=== PATIENT | male | born 1975 ===

== ENCOUNTER 2016-08-30 07:23 | Emergency (ER) | payer OTHER ==
--- NOTE | 2016-08-30 08:04 | RADIOLOGY REPORT ---
Three views of the left ankle without prior films for comparison demonstrate slight cortical irregularity involving the posterior aspect of the fibula raising concern for nondisplaced fracture. The tibia, talus and mortise are intact. The visualized joints appear unremarkable. IMPRESSION: Question nondisplaced distal fibula fracture. Clinical correlation is necessary. If clinically indicated, further evaluation and/or follow-up may be of benefit. MTDD
--- NOTE | 2016-08-30 08:15 | ER PHYSICIAN DOCUMENTATION ---
Physician Documentation [facility] Name:Cory Yuen Age:41 yrs Sex:Male :1975 Arrival Date:08/30/2016 Time:07:23 Bed6 Private MD: Juan Francisco Her Disposition: 08/30 08:08 Chart complete. cd Disposition: 08/30/16 08:04 Discharged to Home/Self Care. Impression: Ankle Sprain - : Acute, Left. - Condition is Good. - Discharge Instructions: AIR STIRRUP ANKLE SPLINT, ANKLE SPRAIN with Xray - SPRAIN ANKLE (w/ x-ray). - Medical Reconciliation form form. - Follow up: Private Physician; When: 7 - 10 days; Reason: Recheck today's complaints, Continuance of care. - Problem is new. - Symptoms are unchanged. - Notes: Ice and elevate above your heart for 2 days. Ibuprofen 600mg by mouth every 6 hours with food for 4 - 5 days Wear Gel Foam Splint for 7 - 10 days HPI: 07:30 This 41 yrs old Male presents to ER via Private Vehicle with complaints of cd Ankle Injury - LEFT. 07:30 The patient presents with pain, that is acute, swelling. The complaints affect the cd right ankle. Onset: The symptom(s)/episode began/occurred acutely, yesterday. Context: The problem was sustained outdoors, The mechanism of injury involved inversion of the affected ankle. The patient can fully bear weight on the affected extremity. the patient is able to ambulate. Associated signs and symptoms: The patient has no apparent associated signs or symptoms. Historical: - Allergies: No known drug Allergies; - Home Meds: 1. clonazepam Oral 2. Crestor oral 3. Prozac Oral - PMHx: DEPRESSION; - PSHx: None; - Tetanus: < 10 years. - Ebola Screening: : Patient denies exposure to infectious person. Patient denies travel to an Ebola-affected area in the 21 days before illness onset. . - Social history: Smoking status: Patient states was never smoker of tobacco. Patient/guardian denies using alcohol, marijuana. ROS: 08:07 Constitutional: Negative for poor PO intake. cd 08:07 MS/extremity: Positive for swelling, tenderness, of the left lateral ankle, Negative for decreased range of motion, deformity. 08:07 Skin: Negative for acute changes. Exam: 08:07 Musculoskeletal/extremity: Extremities: grossly normal except: noted in the left cd lateral ankle: pain, swelling, ROM: limited active range of motion due to pain, in the left lateral ankle, Circulation is intact in all extremities. Sensation intact. Calcaneus exam normal. 08:07 Musculoskeletal/extremity: Weight bearing: able to fully bear weight, Tendon exam: specific tendon testing normal through active and passive range of motion 08:07 Skin: Exam negative for acute changes. 08:09 Constitutional: The patient appears in no acute distress, alert, awake. cd Vital Signs: 07:51 BP 133 / 89; Pulse 72; Pulse Ox 98% on R/A; Pain 5/10; st MDM: 07:32 Data interpreted: Pulse oximetry: on room air is 98 %. Interpretation: normal. cd 07:45 Differential diagnosis: fracture, sprain. cd 08:03 Patient medically screened. cd 08:08 Data reviewed: vital signs, nurses notes, old medical records, radiologic studies, and cd as a result, I will discharge patient. Counseling: I had a detailed discussion with the patient and/or guardian regarding: the historical points, exam findings, and any diagnostic results supporting the discharge/admit diagnosis, radiology results, the need for outpatient follow up, for a recheck, with the patient's primary care provider, to return to the emergency department if symptoms worsen or persist or if there are any questions or concerns that arise at home. Response to treatment: the patient's symptoms have markedly improved after treatment, and as a result, I will discharge patient. 08/30 08:22 Order name: ANKLE; [address] [id number] [facility] 08/30 07:56 Order name: Ice Packs; Complete Time: 56 st 08/30 08:08 Order name: ORTHO: Splint; Complete Time: : st Dispensed Medications: No medications were administered Signatures: Lorrie Shields RN RN st Daley, Chris, MD MD cd
--- NOTE | 2016-08-30 08:15 | ER NURSING DOCUMENTATION ---
Nurse's Notes [facility] Name:Cory Yuen Age:41 yrs Sex:Male :1975 Arrival Date:08/30/2016 Time:07:23 Bed6 Private MD: Diagnosis:Ankle Sprain-: Acute, Left Presentation: 08/30 07:25 Presenting complaint: Patient states: pt rolled his left ankle playing games yesterday. st now he has swelling and pain. Transition of care: [place]. 07:25 Method Of Arrival: Private Vehicle st 07:44 Acuity: LUCIA 4 st Triage Assessment: 07:25 General: Appears in no apparent distress, Behavior is cooperative. Pain: Complains of st pain in left lateral ankle and left medial ankle Pain currently is 5 out of 10 on a pain scale. Pain began 1 day ago. Cardiovascular: No deficits noted. Respiratory: No deficits noted. GI: No deficits noted. Musculoskeletal: Circulation, motion, and sensation intact Swelling present in left lateral ankle and left medial ankle. Historical: - Allergies: No known drug Allergies; - Home Meds: 1. clonazepam Oral 2. Crestor oral 3. Prozac Oral - PMHx: DEPRESSION; - PSHx: None; - Tetanus: < 10 years. - Ebola Screening: : Patient denies exposure to infectious person. Patient denies travel to an Ebola-affected area in the 21 days before illness onset. . - Social history: Smoking status: Patient states was never smoker of tobacco. Patient/guardian denies using alcohol, marijuana. Screenin:51 Infectious Disease Risk None. Abuse screen: Denies threats or abuse. Denies injuries st from another. pt feels safe at home. Nutritional screening: No deficits noted. Vital Signs: 07:51 BP 133 / 89; Pulse 72; Pulse Ox 98% on R/A; Pain 5/10; st ED Course: 07:25 Patient arrived in ED. ama 07:44 Lorrie Shields RN is Primary Nurse. st 07:[address] 07:51 Valuables Remains with patient Patient has correct armband on for positive st identification. Bed in low position. Ice pack to injury. Elevated left leg. 08:03 Juan Francisco Colbert MD is Attending Physician. cd 08:07 Air stirrup applied to left ankle. st Administered Medications: No medications were administered Outcome: 08:04 Discharge ordered by . reji 08:[address] 08:14 Condition: improved 08:14 Discharge instructions given to patient, Instructed on discharge instructions, follow up and referral plans. medication usage. 08:15 Patient [address] the ED[address] st 08/31 11:00 Discharge F/U Call: Unable to reach: non-working number st Signatures: Lorrie Shields, RN RN Juan Francisco Reagan MD MD cd Averdick, Andrew, Reg Reg ama
== END 2016-08-30 08:15 | disposition home or self-care (01) ==
LOC: ER 07:23
DX: S96.912A Strain of unspecified muscle and tendon at ankle and foot level, left foot, initial encounter (principal); W18.49XA Other slipping, tripping and stumbling without falling, initial encounter; Y92.89 Other specified places as the place of occurrence of the external cause; Z79.899 Other long term (current) drug therapy
CPT/HCPCS: 99283